=== PATIENT | male | born 1990 | race Caucasian/White ===

== ENCOUNTER → 2021-03-05 | Outpatient (CLI) | payer MEDICAID, OTHER ==
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
== END ==
LOC: M RAD 07:22
DX: Z87.820 Personal history of traumatic brain injury (principal)